=== PATIENT | female | born 1955 | race Caucasian/White ===

== ENCOUNTER 2017-03-04 19:00 | Outpatient (CLI) | payer SELFPAY | END 2017-03-04 19:01 | disposition home or self-care (01) | LOC: EMS 19:00 | PROVIDERS: ATTEND Surgery | DX: R04.0 Epistaxis (principal) | CPT/HCPCS: A0425; A0427 ==

== ENCOUNTER 2017-03-04 19:21 | Emergency (ER) | payer SELFPAY ==
[2017-03-04] MEDS ORDERED: COCAINE 4 ML BOTTLE TOP ONE (19:28)
[2017-03-04] MEDS ORDERED: TRANEXAMIC ACID 1,000 MG/10 ML VIAL ONE (19:35)
[2017-03-04] MEDS ORDERED: SODIUM CHLORIDE 0.9% 1,000 ML IV ONE (19:40)
--- NOTE | 2017-03-04 19:41 | ED Physician Documentation ---
History of Present Illness - Stated complaint Stated Complaint: NOSEBLEED - Chief complaint Chief Complaint: General - History obtained from History obtained from: Patient, EMS - History of Present Illness Timing: Other (She sneezed 2 nights ago and had a heavy nosebleed with, they came to the hospital but it resolved on the way here so she didn't check in. Tonight recurred with a vengeance on the right side. She is not anticoagulated. ) Review of Systems Ten Systems: 10 systems reviewed and negative Constitutional: denies: Fever, Chills Nose: reports: Rhinorrhea / runny nose, Congestion, Epistaxis Throat: denies: Sore throat Cardiac: denies: Chest pain / pressure, Palpitations Respiratory: denies: Dyspnea, Cough PD PAST MEDICAL HISTORY - Past Medical History Past Medical History: No GI: Ulcers : Kidney stones - Past Surgical History Past Surgical History: No - Present Medications Home Medications: Ambulatory Orders Medication Instructions Recorded Confirmed Omeprazole [PriLOSEC] 20 mg PO DAILY 11/14/13 11/14/13 Ondansetron [Zofran Odt] 8 mg PO Q6H PRN #10 tab.rapdis 11/14/13 oxyCODONE/ACET 5/325 [Percocet 5 1 - 2 each PO Q6H PRN #20 tablet 11/14/13 mg/325 mg] Ciprofloxacin [Cipro] 500 mg PO BID #20 tablet 12/22/13 Ondansetron Odt [Zofran] 4 mg TL Q6H PRN #10 tablet 12/22/13 Promethazine [Phenergan] 25 - 50 mg PO Q6H PRN #10 tab 12/22/13 oxyCODONE/ACET 5/325 [Percocet 5 1 - 2 each PO Q6H PRN #20 tablet 12/22/13 mg/325 mg] Cephalexin [Keflex] 500 mg PO QID #28 capsule 03/04/17 - Allergies Allergies/Adverse Reactions: Allergies Allergy/AdvReac Type Severity Reaction Status Date / Time amoxicillin [Amoxicillin] Allergy Unknown Verified 03/04/17 19:36 Penicillins Allergy Unknown Verified 03/04/17 19:36 codeine AdvReac Intermediate Nausea Verified 03/04/17 19:36 - Social History Does the pt smoke?: No Smoking Status: Never smoker Does the pt drink ETOH?: Yes Does the pt have substance abuse?: No - Family History Family history: reports: Non contributory - Immunizations Immunizations are current?: Yes - POLST Patient has POLST: No PD ED PE NORMAL - Vitals Vital signs reviewed: Yes - General General: Alert and oriented X 3, No acute distress - HEENT HEENT: PERRL, EOMI, Other (Profuse bleeding with clots from the right side with approximately 500 mL of blood in emesis bags at the bedside.) - Neck Neck: Supple, no meningeal sign, No bony TTP - Cardiac Cardiac: RRR, No murmur - Respiratory Respiratory: No respiratory distress, Clear bilaterally - Abdomen Abdomen: Normal bowel sounds, Soft, Non tender - Back Back: No CVA TTP, No spinal TTP - Derm Derm: Normal color, Warm and dry - Extremities Extremities: No edema, No calf tenderness / cord - Neuro Neuro: Alert and oriented X 3, Normal speech - Psych Psych: Normal mood, Normal affect Results - Vitals Vitals: Vital Signs - 24 hr 03/04/17 03/04/17 03/04/17 19:31 20:22 20:48 Temperature 37.2 C Heart Rate 87 70 75 Respiratory 19 17 17 Rate Blood Pressure 143/103 H 136/71 H 131/83 H O2 Saturation 97 99 99 03/04/17 21:22 Temperature Heart Rate 76 Respiratory 17 Rate Blood Pressure 136/70 H O2 Saturation 97 Oxygen O2 Source Room air - Labs Labs: Laboratory Tests 03/04/17 03/04/17 03/04/17 20:04 20:04 20:04 WBC 6.6 RBC 3.92 L Hgb 11.9 L Hct 35.2 L MCV 89.8 MCH 30.5 MCHC 34.0 RDW 13.1 Plt Count 228 MPV 8.5 Neut # 4.1 Lymph # 1.7 Gregory # 0.6 Eos # 0.2 Baso # 0.0 Absolute Nucleated RBC 0.00 Nucleated RBCs 0.0 PT 12.5 INR 1.1 Sodium 141 Potassium 3.7 Chloride 105 Carbon Dioxide 29 Anion Gap 7.0 BUN 10 Creatinine 0.7 Estimated GFR (MDRD) 85 L Glucose 110 H Calcium 8.6 Total Bilirubin 1.2 H AST 28 ALT 25 Alkaline Phosphatase 69 Total Protein 6.5 L Albumin 3.9 Globulin 2.6 Albumin/Globulin Ratio 1.5 Lipase 27 Procedures - Epistaxis Site: Right Preparation: Clots removed, Cocaine (ineffective) Treatment: Anterior rhinorocket (bbilateral, soaked in tranexemic acid) PD MEDICAL DECISION MAKING - ED course ED course: She presents with a profuse nose bleed, I am unable to visualize the source. Initial conservative measures with cocaine were unsuccessful and bilateral anterior nasal packings were placed with cessation of the bleeding. Departure - Departure Disposition: Home, Self Care Clinical Impression: Anterior epistaxis Condition: Good Record reviewed to determine appropriate education?: Yes Instructions: ED Nosebleed Prescriptions: Cephalexin [Keflex] 500 mg PO QID #28 capsule Comments: Ideally you will followup with an ear nose and throat physician in 3-4 days time to have your nasal packing removed, the closest to you is the [facility], call [phone] on Tuesday to schedule an appointment. If unable return here no later than Tuesday afternoon for packing removal. Your blood pressure was elevated today on check in to the emergency department. This does not mean that you have hypertension, it is a common phenomenon to check into the emergency department and have elevated blood pressure. I recommend that you see your primary care physician within the week to have it rechecked when you're feeling better. Discharge Date/Time: 03/04/17 21:24
[2017-03-04] MEDS ORDERED: COCAINE 4 ML BOTTLE TOP STA (20:27)
[2017-03-04] MEDS ORDERED: ceFAZolin 1 GM in SODIUM CHLORIDE 0.9% MINIBAG 100 ML IV ONE (20:28)
[2017-03-04 20:30] LABS: BASOPHILS % (AUTO) 0.4 %; EOSINOPHILS # (AUTO) 0.2 10^3/uL (0.0-0.7); EOSINOPHILS % (AUTO) 3.2 %; HCT - HEMATOCRIT 35.2 % (37.0-47.0); HGB - HEMOGLOBIN 11.9 g/dL (12.0-16.0); LYMPHOCYTES # (AUTO) 1.7 10^3/uL (1.5-3.5); LYMPHOCYTES % (AUTO) 25.4 %; MEAN CORPUSCULAR HEMOGLOBIN 30.5 pg (27.0-31.0); MEAN CORPUSCULAR VOLUME 89.8 fL (81.0-99.0); MEAN PLATELET VOLUME 8.5 fL (7.9-10.8); MONOCYTES # (AUTO) 0.6 10^3/uL (0.0-1.0); MONOCYTES % (AUTO) 8.5 %; NEUTROPHILS # (AUTO) 4.1 10^3/uL (1.5-6.6); NEUTROPHILS % (AUTO) 62.5 %; RED BLOOD COUNT 3.92 10^6/uL (4.20-5.40); RED CELL DISTRIBUTION WIDTH 13.1 % (12.0-15.0); UNCORRECTED WHITE BLOOD COUNT 6.6 x10^3/uL; WHITE BLOOD COUNT 6.6 x10^3/uL (4.8-10.8)
[2017-03-04] MEDS ORDERED: ceFAZolin 1 GM VIAL ONE (20:37)
[2017-03-04 20:40] LABS: INR 1.1 (0.8-1.2); PT - PROTHROMBIN TIME 12.5 secs (9.9-12.6)
[2017-03-04 20:41] LABS: ALBUMIN/GLOBULIN RATIO 1.5 (1.0-2.2); BILIRUBIN,TOTAL 1.2 mg/dL (0.2-1.0); CALCIUM 8.6 mg/dL (8.5-10.3); CREATININE 0.7 mg/dL (0.4-1.0); POTASSIUM 3.7 mmol/L (3.5-5.0); TOTAL PROTEIN 6.5 g/dL (6.7-8.2)
[2017-03-04] MEDS ORDERED: HYDROcod/ACET 5/325 Prepack 6 PO STA (20:41)
[2017-03-04] MEDS ORDERED: HYDROcod/ACET 5/325 Prepack 6 PO ONE (20:49)
[2017-03-04 21:24] VITALS: BP 136/70
--- NOTE | 2017-03-05 13:45 | ED Physician Documentation ---
ED Addendum - Addendum Addendum: 03/05/17 13:44 called inconcerned about [facility] saying that keflex was a pcn. Assured him that it was a beta lactam but not a pcn and studies have shown safety of cephalosporins in pcn allergic ppl, also had ancef last night without issue. The left packing fell out but right is in situ and no bleeding.
--- NOTE | 2017-03-05 14:31 | ED Physician Documentation ---
ED Addendum - Addendum Addendum: 03/05/17 14:30 TC from , she is quite nauseous despite promethazine. Advised can double dose of promethazine, but also called in rx for zofran 4mg tab po q6h prn n/v # 15.
== END 2017-03-04 21:24 | disposition home or self-care (01) ==
LOC: EDUNIT# → ED 19:21
DX: R04.0 Epistaxis (principal); R03.0 Elevated blood-pressure reading, without diagnosis of hypertension; R11.0 Nausea
CPT/HCPCS: 30901; 36415; 80053; 83690; 85025; 85610; 96365; 99283; 99284

== ENCOUNTER 2020-09-08 07:00 | Outpatient (CLI) | payer MEDICARE | END 2020-09-08 23:59 | disposition home or self-care (01) | LOC: LAB.R 07:00 | PROVIDERS: ATTEND Physician Assistant Medical | DX: R05 Cough (principal); B34.9 Viral infection, unspecified; Z20.828 Contact with and (suspected) exposure to other viral communicable diseases | CPT/HCPCS: 87275; 87276 ==

== ENCOUNTER 2022-06-30 03:44 | Emergency (ER) | payer MEDICARE ==
[2022-06-30 04:09] LABS: BASOPHILS % (AUTO) 0.3 %; EOSINOPHILS # (AUTO) 0.1 10^3/uL (0.0-0.7); EOSINOPHILS % (AUTO) 0.6 %; HCT - HEMATOCRIT 41.5 % (37.0-47.0); LYMPHOCYTES # (AUTO) 1.8 10^3/uL (1.5-3.5); LYMPHOCYTES % (AUTO) 11.4 %; MEAN CORPUSCULAR HEMOGLOBIN 30.9 pg (27.0-31.0); MEAN CORPUSCULAR HGB CONC 33.7 g/dL (32.0-36.0); MEAN CORPUSCULAR VOLUME 91.6 fL (81.0-99.0); MEAN PLATELET VOLUME 10.9 fL (7.9-10.8); MONOCYTES # (AUTO) 1.2 10^3/uL (0.0-1.0); MONOCYTES % (AUTO) 7.3 %; NEUTROPHILS # (AUTO) 12.6 10^3/uL (1.5-6.6); NEUTROPHILS % (AUTO) 80.2 %; PLT - PLATELET COUNT 297 10^3/uL (130-450); RED BLOOD COUNT 4.53 10^6/uL (4.20-5.40); RED CELL DISTRIBUTION WIDTH 12.5 % (12.0-15.0); WHITE BLOOD COUNT 15.7 x10^3/uL (4.8-10.8)
[2022-06-30 04:13] LABS: BILIRUBIN,URINE NEGATIVE (NEGATIVE); GLUCOSE, URINE (UA) NEGATIVE (NEGATIVE); KETONES,URINE (UA) NEGATIVE (NEGATIVE); LEUKOCYTE ESTERASE, URINE TRACE (NEGATIVE); NITRITE,URINE NEGATIVE (NEGATIVE); OCCULT BLOOD,URINE NEGATIVE (NEGATIVE); PROTEIN,URINE TRACE mg/dL (NEGATIVE); UROBILINOGEN,URINE 0.2 (NORMAL) E.U./dL (NORMAL)
[2022-06-30 04:16] LABS: CLARITY,URINE CLEAR (CLEAR)
[2022-06-30] MEDS ORDERED: ONDANSETRON 4 MG/2 ML VIAL IVP STA (04:22)
[2022-06-30] MEDS ORDERED: FAMOTIDINE 20 MG/2 ML VIAL IVP STA (04:22)
--- NOTE | 2022-06-30 04:25 | ED Physician Documentation ---
History of Present Illness - Stated complaint Stated Complaint: NAUSEA - Chief complaint Chief Complaint: Abd Pain - History obtained from History obtained from: Patient, Family () - Additonal information Additional information: 67-year-old woman with history of bleeding ulcer presents with epigastric abdominal pain radiating to mid abdomen associated with bloating sensation since 7 PM this past evening. Also with nausea but minimal vomiting. Nonbloody nonbilious. Denies diarrhea, fever, blood in the stool. gave her antacid and Pepto-Bismol without relief. Review of Systems Ten Systems: 10 systems reviewed and negative Constitutional: denies: Fever, Chills GI: reports: Abdominal Pain, Nausea, Vomiting. denies: Constipation, Diarrhea, Bloody / black stool PD PAST MEDICAL HISTORY - Past Medical History GI: Ulcers : Kidney stones - Past Surgical History Past Surgical History: No - Present Medications Home Medications: Ambulatory Orders Medication Instructions Recorded Confirmed Omeprazole [PriLOSEC] 20 mg PO DAILY 11/14/13 11/14/13 Ondansetron [Zofran Odt] 8 mg PO Q6H PRN #10 tab.rapdis 11/14/13 oxyCODONE/ACET 5/325 [Percocet 5 1 - 2 each PO Q6H PRN #20 tablet 11/14/13 mg/325 mg] Ciprofloxacin [Cipro] 500 mg PO BID #20 tablet 12/22/13 Ondansetron Odt [Zofran] 4 mg TL Q6H PRN #10 tablet 12/22/13 Promethazine [Phenergan] 25 - 50 mg PO Q6H PRN #10 tab 12/22/13 oxyCODONE/ACET 5/325 [Percocet 5 1 - 2 each PO Q6H PRN #20 tablet 12/22/13 mg/325 mg] cephALEXin [Keflex] 500 mg PO QID #28 capsule 03/04/17 Famotidine [Pepcid] 20 mg PO BID PRN #30 tablet 06/30/22 - Allergies Allergies/Adverse Reactions: Allergies Allergy/AdvReac Type Severity Reaction Status Date / Time amoxicillin [Amoxicillin] Allergy Unknown Verified 06/30/22 04:03 Penicillins Allergy Unknown Verified 06/30/22 04:03 codeine AdvReac Intermediate Nausea Verified 06/30/22 04:03 - Social History Does the pt smoke?: No Smoking Status: Never smoker Does the pt drink ETOH?: Yes Does the pt have substance abuse?: No - Immunizations Immunizations are current?: Yes Immunizations: TDAP >10years/unknown - POLST Patient has POLST: No PD ED PE NORMAL - Vitals Vital signs reviewed: Yes - General General: Alert and oriented X 3, No acute distress, Well developed/nourished - HEENT HEENT: Atraumatic, PERRL, EOMI - Neck Neck: Supple, no meningeal sign - Cardiac Cardiac: RRR - Respiratory Respiratory: No respiratory distress, Clear bilaterally - Abdomen Abdomen: Non tender, Non distended, Other (Discomfort diffusely to palpation) - Back Back: No CVA TTP - Derm Derm: Normal color, Warm and dry - Extremities Extremities: No deformity - Neuro Neuro: Alert and oriented X 3 - Psych Psych: Normal mood, Normal affect Results - Vitals Vitals: Vital Signs - 24 hr 06/30/22 06/30/22 03:48 05:56 Temperature 36.2 C L Heart Rate 114 H 76 Respiratory 16 14 Rate Blood Pressure 164/91 H 124/82 H O2 Saturation 96 99 Oxygen O2 Source Room air - EKG (time done) 0431 Rate: Rate (enter#) (89) Rhythm: NSR [place]: Normal Intervals: Normal [place] QRS: Normal Ischemia: Normal ST segments - Labs Labs: Laboratory Tests 06/30/22 06/30/22 06/30/22 03:52 03:58 04:16 WBC 15.7 H RBC 4.53 Hgb 14.0 Hct 41.5 MCV 91.6 MCH 30.9 MCHC 33.7 RDW 12.5 Plt Count 297 MPV 10.9 H Neut # (Auto) 12.6 H Lymph # (Auto) 1.8 [place] # (Auto) 1.2 H Eos # (Auto) 0.1 Baso # (Auto) 0.0 Absolute Nucleated RBC 0.00 Nucleated RBC % 0.0 Sodium 139 Potassium 3.6 Chloride 104 Carbon Dioxide 26 Anion Gap 9.0 BUN 15 Creatinine 0.8 Estimated GFR (MDRD) 71 L Glucose 139 H Calcium 9.7 Total Bilirubin 0.7 AST 28 ALT 20 Alkaline Phosphatase 68 Total Protein 7.3 Albumin 4.0 Globulin 3.3 Albumin/Globulin Ratio 1.2 Lipase 35 Urine Color YELLOW Urine Clarity CLEAR Urine pH 6.0 Ur Specific [place] 1.010 Urine Protein TRACE Urine Glucose (UA) NEGATIVE Urine Ketones NEGATIVE Urine Occult Blood NEGATIVE Urine Nitrite NEGATIVE Urine Bilirubin NEGATIVE Urine Urobilinogen 0.2 (NORMAL) Ur Leukocyte Esterase TRACE H Urine RBC None Seen Urine WBC 0-3 Ur Squamous Epith Cells FEW Squamous Urine Bacteria Rare Ur Microscopic Review INDICATED Urine Culture Comments INDICATED PD MEDICAL DECISION MAKING - ED course ED course: 67-year-old woman presented with epigastric pain consistent with gastritis versus stomach ulcer. Will obtain screening EKG, however she has low risk profile given that she is a non-smoker, has no family history of heart disease, and displays no other symptoms of [place]. Departure - Departure Disposition: 01 Home, Self Care Clinical Impression: Nausea, Abdominal pain, Bloating Condition: Good Instructions: Abdominal Pain Prescriptions: Famotidine [Pepcid] 20 mg PO BID PRN #30 tablet PRN Reason: Pain Comments: You are seen in the emergency department for nausea, abdominal pain, and bloating. Your lab work was normal except for an increased white blood cell count of 15.7. This is a sign of infection or inflammation. Please follow-up with your primary care practitioner and return to the emergency department if you have any new or worsening symptoms or other concerns. You may need to see a termination clerk if you continue to have symptoms like this. Prescription for Pepcid was sent to the [facility] in [place].
[2022-06-30 04:28] LABS: BACTERIA,URINE Rare /HPF (None Seen); RBC,URINE None Seen /HPF (0-5); SQUAMOUS EPITHELIAL CELL,UR FEW Squamous (<= Few); WBC,URINE 0-3 /HPF (0-5)
[2022-06-30 04:37] LABS: ALBUMIN/GLOBULIN RATIO 1.2 (1.0-2.2); BILIRUBIN,TOTAL 0.7 mg/dL (0.2-1.0); CALCIUM 9.7 mg/dL (8.5-10.3); CREATININE 0.8 mg/dL (0.4-1.0); POTASSIUM 3.6 mmol/L (3.5-5.0); TOTAL PROTEIN 7.3 g/dL (6.7-8.2)
[2022-06-30 06:15] VITALS: BP 129/80
[2022-06-30] MEDS ORDERED: ONDANSETRON ODT 4 MG TABLET TL STA (06:20)
== END 2022-06-30 06:27 | disposition home or self-care (01) ==
LOC: ED 03:44
DX: R10.13 Epigastric pain (principal); R11.2 Nausea with vomiting, unspecified; R14.0 Abdominal distension (gaseous); D72.829 Elevated white blood cell count, unspecified; Z87.11 Personal history of peptic ulcer disease; Z87.442 Personal history of urinary calculi
CPT/HCPCS: 36415; 80053; 81001; 83690; 85025; 87086; 93005; 96374; 96375; 99282; 99283; Q0162; 81003

== ENCOUNTER 2023-09-25 21:44 | Emergency (ER) | payer MEDICARE ==
[2023-09-25 22:09] LABS: BASOPHILS % (AUTO) 0.6 %; EOSINOPHILS # (AUTO) 0.3 10^3/uL (0.0-0.7); EOSINOPHILS % (AUTO) 4.9 %; HCT - HEMATOCRIT 43.3 % (37.0-47.0); HGB - HEMOGLOBIN 13.9 g/dL (12.0-16.0); LYMPHOCYTES % (AUTO) 27.8 %; MEAN CORPUSCULAR HEMOGLOBIN 30.2 pg (27.0-31.0); MEAN CORPUSCULAR HGB CONC 32.1 g/dL (32.0-36.0); MEAN CORPUSCULAR VOLUME 94.1 fL (81.0-99.0); MEAN PLATELET VOLUME 9.5 fL (7.9-10.8); MONOCYTES # (AUTO) 0.7 10^3/uL (0.0-1.0); MONOCYTES % (AUTO) 9.6 %; PLT - PLATELET COUNT 296 10^3/uL (130-450); RED CELL DISTRIBUTION WIDTH 12.7 % (12.0-15.0)
[2023-09-25 22:24] LABS: ALBUMIN 4.4 g/dL (3.2-5.5); ALBUMIN/GLOBULIN RATIO 1.4 (1.0-2.2); BILIRUBIN,TOTAL 0.7 mg/dL (0.2-1.0); CALCIUM 9.5 mg/dL (8.5-10.3); CREATININE 0.7 mg/dL (0.6-1.3); POTASSIUM 3.8 mmol/L (3.5-4.5); TOTAL PROTEIN 7.6 g/dL (6.4-8.9)
--- NOTE | 2023-09-25 22:24 | ED Physician Documentation ---
PD HPI ABD PAIN - Stated complaint Stated Complaint: ABD PX/NAUSEA/MONTEMAY[place] - Chief complaint Chief Complaint: Abd Pain - History obtained from History obtained from: Patient - Additional information Additional information: HPI from patient. Patient c/o epigastric burning pain past two nights but asymptomatic during the day today. She says it feels like "acid indigestion" (per patient), similar to previous symptoms attributed to GERD. She has had nausea and generalized headache, as well. Denies fever. Has taken omeprazole, pepto bismol, and ondansetron ( 2 months ago) without improvement. denies chest pain, dyspnea, fever. Review of Systems Constitutional: denies: Fever Cardiac: reports: Reviewed and negative Respiratory: reports: Reviewed and negative GI: reports: Abdominal Pain, Nausea. denies: Vomiting, Constipation, Diarrhea PD PAST MEDICAL HISTORY - Past Medical History Past Medical History: Yes GI: Ulcers : Kidney stones - Past Surgical History Past Surgical History: No - Present Medications Home Medications: Ambulatory Orders Medication Instructions Recorded Confirmed Omeprazole [PriLOSEC] 20 mg PO DAILY 11/14/13 09/25/23 Ondansetron [Zofran Odt] 8 mg PO Q6H PRN #10 tab.rapdis 11/14/13 09/25/23 oxyCODONE/ACET 5/325 [Percocet 5 1 - 2 each PO Q6H PRN #20 tablet 11/14/13 09/25/23 mg/325 mg] Ciprofloxacin [Cipro] 500 mg PO BID #20 tablet 12/22/13 Ondansetron Odt [Zofran] 4 mg TL Q6H PRN #10 tablet 12/22/13 09/25/23 Promethazine [Phenergan] 25 - 50 mg PO Q6H PRN #10 tab 12/22/13 09/25/23 oxyCODONE/ACET 5/325 [Percocet 5 1 - 2 each PO Q6H PRN #20 tablet 12/22/13 09/25/23 mg/325 mg] cephALEXin [Keflex] 500 mg PO QID #28 capsule 03/04/17 09/25/23 Famotidine [Pepcid] 20 mg PO BID PRN #30 tablet 06/30/22 Ondansetron Odt [Zofran] 4 mg TL Q6H PRN #10 tablet 06/30/22 09/25/23 Lidocaine Viscous 2% [Xylocaine 5 ml MM Q4H PRN #100 ml 09/26/23 Viscous 2%] Ondansetron Odt [Zofran Odt] 4 mg TL Q6H PRN #14 tablet 09/26/23 Sucralfate [Carafate] 1 tablet PO ACHS #60 tablet 09/26/23 traMADol [Ultram] 50 mg PO Q4-6H PRN #20 tablet 09/26/23 - Allergies Allergies/Adverse Reactions: Allergies Allergy/AdvReac Type Severity Reaction Status Date / Time amoxicillin [Amoxicillin] Allergy Unknown Verified 09/25/23 21:54 Penicillins Allergy Unknown Verified 09/25/23 21:54 codeine AdvReac Intermediate Nausea Verified 09/25/23 21:54 - Social History Does the pt smoke?: No Smoking Status: Never smoker Does the pt drink ETOH?: Yes Does the pt have substance abuse?: No - Immunizations Immunizations are current?: Yes Immunizations: TDAP >10years/unknown - POLST Patient has POLST: No PD ED PE NORMAL - Vitals Vital signs reviewed: Yes - General General: Alert and oriented X 3, No acute distress, Well developed/nourished - Cardiac Cardiac: RRR, No murmur - Respiratory Respiratory: No respiratory distress, Clear bilaterally - Abdomen Abdomen: Normal bowel sounds, Soft, Non tender, Non distended - Derm Derm: Normal color, Warm and dry Results - Vitals Vitals: Oxygen O2 Source Room air - Labs Labs: Microbiology 09/25/23 22:29 Urine Culture - Final Urine,Clean Catch LESS THAN 10,000 COLONIES/ML polymicrobial growth including potential pathogens. This is suggestive of skin or other contamination. Laboratory Tests 09/25/23 09/25/23 09/25/23 22:04 22:04 22:29 WBC 7.0 RBC 4.60 Hgb 13.9 Hct 43.3 MCV 94.1 MCH 30.2 MCHC 32.1 RDW 12.7 Plt Count 296 MPV 9.5 Neut # (Auto) 4.0 Lymph # (Auto) 2.0 [place] # (Auto) 0.7 Eos # (Auto) 0.3 Baso # (Auto) 0.0 Absolute Nucleated RBC 0.00 Nucleated RBC % 0.0 Sodium 141 Potassium 3.8 Chloride 105 Carbon Dioxide 29 Anion Gap 7.0 BUN 10 Creatinine 0.7 Estimated GFR (MDRD) 83 L Glucose 106 H Calcium 9.5 Total Bilirubin 0.7 AST 26 ALT 26 Alkaline Phosphatase 69 Total Protein 7.6 Albumin 4.4 Globulin 3.2 Albumin/Globulin Ratio 1.4 Lipase 45 Urine Color YELLOW Urine Clarity HAZY Urine pH 7.0 Ur Specific [place] 1.010 Urine Protein NEGATIVE Urine Glucose (UA) NEGATIVE Urine Ketones NEGATIVE Urine Occult Blood NEGATIVE Urine Nitrite NEGATIVE Urine Bilirubin NEGATIVE Urine Urobilinogen 0.2 (NORMAL) Ur Leukocyte Esterase TRACE H Urine RBC 0-5 Urine WBC 0-3 Ur Squamous Epith Cells FEW Squamous Amorphous Sediment Few Urine Bacteria Few Ur Microscopic Review INDICATED Urine Culture Comments INDICATED PD Medical Decision Making - ED course Complexity details: reviewed results, re-evaluated patient, considered differential, d/w patient ED course: Normal CBC, ER abdominal panel. Nontender abdominal exam. Imaging not indicated at this time. She is given PO maalox, viscous lidocaine,IV zofran, IV protonix, one liter NS IV. On reevaluation, she reports resolution of symptoms. Results reviewed with patient and return precautions discussed. She is provided prescriptions for ondansetron, carafate, protonix, and tramadol. Departure - Departure Disposition: 01 Home, Self Care Clinical Impression: Abdominal pain Qualifiers: Abdominal location: upper abdomen, unspecified Qualified Code(s): R10.10 - Upper abdominal pain, unspecified Condition: Good Instructions: ED Abdominal Pain Female Non-Specific Abdominal Pain Prescriptions: Sucralfate [Carafate] 1 tablet PO ACHS #60 tablet traMADol [Ultram] 50 mg PO Q4-6H PRN #20 tablet PRN Reason: Headache Lidocaine Viscous 2% [Xylocaine Viscous 2%] 5 ml MM Q4H PRN #100 ml PRN Reason: Abdominal Pain Ondansetron Odt [Zofran Odt] 4 mg TL Q6H PRN #14 tablet PRN Reason: Nausea / Vomiting Comments: There were no concerning nor diagnostic findings on tonight's blood tests. They were, in fact, normal except for blood sugar of 106 (this is barely above the normal range, and is not unusual when 1 is not feeling well). The cause of your abdominal pain is not apparent at this time. As we discussed, given that you have a history of peptic ulcer disease and that you feel some similarity in tonight's symptoms compared to symptoms associated with your ulcers in the past, a reoccurrence of ulcer would be a likely cause. There are no tests available in the emergency department to diagnos ulcer; this requires other tests such as upper endoscopy. Follow-up with your primary care provider, next available appointment, for reevaluation. I have electronically submitted prescriptions for several medications to the [facility] in [place]. The prescriptions include tramadol (opiate/narcotic pain medication to be used for headache), ondansetron (antinausea medication), Carafate (medication that can help ulcers to heal by creating a barrier between the stomach acid and the stomach wall), and viscous lidocaine (numbing medication that can provide faster relief for pain associated with ulcers). If you take the viscous lidocaine, I recommend mixing it with a tablespoon of liquid Mylanta or liquid Maalox to help disguise the medicinal taste and smell of the lidocaine. I am prescribing a short course of narcotic pain medication for you. These are potentially dangerous and addictive medications that should be used carefully. These medications may constipate you. Take an hoha-bdu-tpvafty stool softener (docusate) twice daily with plenty of water while taking these medications. If you go 24 hours without a bowel movement, take fxiw-cda-vugloib miralax, per package instructions. Do not drink or drive while taking these medications. If you received narcotic or sedating medications while in the emergency department, do not drive for 24 hours. Store this medication in a safe, secure place and out of reach of children. It is a violation of federal law to give or sell this medication to another person or to use in a manner other than prescribed. The ED will not refill narcotic prescriptions, including prescriptions lost or stolen. To dispose of unwanted medications: 1. [facility] at [address] in [place] has a medication drop box. They accept prescription medications (in pill form) Tuesday through Tuesday 9:00 a.m. to 5:00 p.m. 2. The [facility] accepts prescription medications (in pill form only) for disposal year round. Call for more information. 3. Contact the [facility] for the next [facility] sponsored prescription drug collection event. , [phone], or [phone]; Discharge Date/Time: 09/26/23 00:45
[2023-09-25 22:38] LABS: BILIRUBIN,URINE NEGATIVE (NEGATIVE); GLUCOSE, URINE (UA) NEGATIVE (NEGATIVE); KETONES,URINE (UA) NEGATIVE (NEGATIVE); LEUKOCYTE ESTERASE, URINE TRACE (NEGATIVE); NITRITE,URINE NEGATIVE (NEGATIVE); OCCULT BLOOD,URINE NEGATIVE (NEGATIVE); PROTEIN,URINE NEGATIVE (NEGATIVE); UROBILINOGEN,URINE 0.2 (NORMAL) E.U./dL (NORMAL)
[2023-09-25] MEDS ORDERED: MAG HYDROX/AL HYDROX/SIMETH 30 ML UDC PO STA (22:44)
[2023-09-25] MEDS ORDERED: ONDANSETRON 4 MG/2 ML VIAL IVP STA (22:44)
[2023-09-25] MEDS ORDERED: SODIUM CHLORIDE 0.9% 1,000 ML IV STA (22:44)
[2023-09-25] MEDS ORDERED: KETOROLAC 30 MG/ML VIAL IVP STA (22:44)
[2023-09-25 22:45] LABS: CLARITY,URINE HAZY (CLEAR)
[2023-09-25] MEDS ORDERED: PANTOPRAZOLE 40 MG VIAL IVP STA (22:45)
[2023-09-25] MEDS ORDERED: LIDOCAINE VISCOUS 2% 15 ML ORAL SYRINGE MM STA (22:45)
[2023-09-25 22:54] LABS: AMORPHOUS SEDIMENT,UR Few /LPF; BACTERIA,URINE Few /HPF (None Seen); RBC,URINE 0-5 /HPF (0-5); SQUAMOUS EPITHELIAL CELL,UR FEW Squamous (<= Few); WBC,URINE 0-3 /HPF (0-5)
[2023-09-26 01:05] VITALS: BP 112/63; O2SAT 96
== END 2023-09-26 00:45 | disposition home or self-care (01) ==
LOC: ED 21:44
DX: R10.10 Upper abdominal pain, unspecified (principal)
CPT/HCPCS: 36415; 80053; 81001; 83690; 85025; 87086; 96374; 99283; A9270; 81003

== ENCOUNTER 2024-01-11 08:00 | Outpatient (CLI) | payer MEDICARE ==
--- NOTE | 2024-01-12 12:51 | XRAY Report ---
Chest 2V HISTORY: CHRONIC COUGH COMPARISON: None. TECHNIQUE: 2 views of the chest are submitted for interpretation. FINDINGS/IMPRESSION: No pleural effusion or pneumothorax. No pulmonary edema or focal consolidation. Normal cardiomediastinal silhouette. Reviewed by: Jonelle Ahumada MD on 01/12/2024 12:50 PM PDT Approved by: Jonelle Ahumada MD on 01/12/2024 12:50 PM PDT Station ID: [id number]
== END 2024-01-11 23:59 | disposition home or self-care (01) ==
LOC: DI.S 08:00
PROVIDERS: ATTEND Emergency Medicine
DX: R05.3 Chronic cough (principal)

== ENCOUNTER 2024-02-07 15:03 | Outpatient (CLI) | payer MEDICARE ==
[2024-02-07 15:25] LABS: CREATININE 0.9 mg/dL (0.6-1.3)
[2024-02-07] MEDS ORDERED: iohexoL-300 100 ML VIAL ONE (15:30)
[2024-02-07] MEDS: iohexoL-300 100 ML VIAL IVP ONE (17:02)
--- NOTE | 2024-02-09 13:34 | CT Report ---
PROCEDURE: Chest W INDICATIONS: CHRONIC COUGH CONTRAST: 80 mL Omni 300 100ml TECHNIQUE: After the administration of intravenous contrast, a CT scan of the chest was performed. Images were recorded and evaluated at appropriate window settings. Reformats: axial MIP of the chest, coronal and sagittal. For radiation dose reduction, the following was used: automated exposure control, adjustme nt of mA and/or kV according to patient size. COMPARISON: Chest x-ray, 01/11/2024. No chest CT images available for comparison. FINDINGS: Image quality: Diagnostic. Chest wall and lower neck: Thyroid nodules are present bilaterally. The largest nodule is in the left thyroid lobe measuring 1.1 cm. No breast mass. No axillary or supraclavicular adenopathy by size. Lungs and pleura: Mild groundglass infiltrate in the superior segment of the right lower lobe. Bibasi lar scars and atelectasis. No consolidation. No pleural effusions. No pneumothorax. No suspicious pu lmonary nodules which require follow up. Mediastinum: Heart size is normal. No pericardial effusion. No large vessel abnormality. Borderline e nlarged mediastinal lymph nodes are present. For example, there is a 1 cm precarinal lymph node and a 1 cm subcarinal lymph node. There is a [id number] sized hiatal hernia. Bones: No aggressive osseous abnormality. Upper Abdomen: Hypodense nodules in the liver are most likely hepatic cysts. IMPRESSION: 1. Mild infiltrate in the superior segment of the right lower lobe, suspicious for pneumonitis or pne umonia. 2. Bibasilar scars and atelectasis. 3. Borderline sized mediastinal lymph nodes, most likely reactive. 4. A small to moderate-sized hiatal hernia. 5. Thyroid nodules bilaterally. ACR recommendations no further follow-up imaging thyroid nodules less than 1.5 cm. Reviewed by: Charles Cordova MD on 02/09/2024 1:33 PM PDT Approved by: Charles Cordova MD on 02/09/2024 1:33 PM PDT Station ID: [id number]
== END 2024-02-07 15:04 | disposition home or self-care (01) ==
LOC: LAB 15:03
PROVIDERS: ATTEND Internal Medicine
DX: R05.3 Chronic cough (principal); R91.8 Other nonspecific abnormal finding of lung field; J98.4 Other disorders of lung; J98.11 Atelectasis; R59.0 Localized enlarged lymph nodes; K44.9 Diaphragmatic hernia without obstruction or gangrene; E04.2 Nontoxic multinodular goiter
CPT/HCPCS: 36415; 71260; 82565; Q9967